=== PATIENT | female | born 1985 | race Two or more races ===

== ENCOUNTER 2017-02-15 18:30 | Emergency (ER) | payer OTHER ==
[~2017-02-15] VITALS: Ht 152.4 cm; Wt 49.9 kg
[2017-02-15 18:35] VITALS: BP 109/69
== END 2017-02-15 20:36 ==
LOC: ER 18:33
DX: S61.409A Unspecified open wound of unspecified hand, initial encounter (principal); W46.0XXA Contact with hypodermic needle, initial encounter; Y93.89 Activity, other specified; Y92.89 Other specified places as the place of occurrence of the external cause; Y99.9 Unspecified external cause status
CPT/HCPCS: 36415; 86706; 86803; 99284; A4606; Z7610